=== PATIENT | female | born 1990 ===

== ENCOUNTER 2020-02-14 21:17 | Outpatient (REF) | payer MEDICAID, SELFPAY ==
[2020-02-14 20:32] LABS: Abs Immature Grans 0.01 10^3/uL (0.0-0.06); Absolute Basophil Count 0.01 10^3/uL (0.0-0.2); Absolute Eosinophil Count 0.13 10^3/uL (0.0-0.7); Absolute Lymphocyte Count 2.06 10^3/uL (1.2-3.4); Absolute Monocyte Count 0.34 10^3/uL (0.1-0.8); Absolute Neutrophil Count 3.31 10^3/uL (1.2-6.7); Basophils % 0.2; Eosinophils % 2.2; HCT 37.9 % (36.0-46.0); HGB 13.4 g/dL (11.2-15.7); Immature Grans % 0.2; Lymphocytes % 35.2; MCH 31.8 pg (27.0-33.0); MCHC 35.4 % (32.0-36.0); MPV 11.2 fL (8.0-11.0); Monocytes % 5.8; Neutrophils % 56.4; Nucleated RBC 0 %; Platelet Count 232 10^3/uL (130-400); RBC 4.21 10^6/uL (3.93-5.22); RDW 11.4 % (11.7-14.6); RDW-SD 37.1 fL; WBC 5.86 10^3/uL (4.4-10.8)
[2020-02-14 20:59] LABS: Iron 72 ug/dL (50-170); Total Iron Binding Capacity 397 ug/dL (250-450); Transferrin Sat 18 % (15-50)
[2020-02-14 21:01] LABS: TSH (W/Ref FT4) 0.82 uIU/mL (0.36-3.74)
== END 2020-02-14 21:37 ==
LOC: NCHCN 21:17
PROVIDERS: Visit Provider Nurse Practitioner Family
DX: N93.8 Other specified abnormal uterine and vaginal bleeding (principal); R25.3 Fasciculation
CPT/HCPCS: 83540; 83550; 84443; 85025

== ENCOUNTER 2022-06-10 17:52 | Outpatient (REF) | payer MEDICAID, SELFPAY ==
--- NOTE | 2022-06-10 16:20 | PAPFT_PTH ---
PATIENT: Monique Callejas LOC: [facility] U#:[id number] AGE/SX: 31/F ROOM: RE06/10/[address]: Jacquie Sosa : 1990 BED: DIS: 06/10/2022 SPEC #: [id number] RECD: 06/11/22 13:02 STATUS: NELSON REBritt #: [id number] SEBASTIÁN: 06/10/22 16:[address]: Jacquie Sosa DEPT: [facility] Cytology RECD BY: Payal Pierson Tissues: 1 - CX/ENDOCX FOR PAP SMEARS Procedures: PAP THIN PREP/[facility] Screening Comments: [id number]
== END 2022-06-10 17:53 | disposition home or self-care (01) ==
LOC: NCHCN 17:52
PROVIDERS: PCP Family Medicine; Visit Provider Family Medicine
DX: Z12.4 Encounter for screening for malignant neoplasm of cervix (principal)
CPT/HCPCS: 88142